=== PATIENT | male | born 1940 | race Caucasian/White ===

== ENCOUNTER 2021-11-18 12:16 | Inpatient (IN) | payer OTHER, BC ==
[~2021-11-18] VITALS: Ht 170.2 cm; Wt 86.2 kg
[2021-11-18 12:16] VITALS: BP 137/71
--- NOTE | 2021-11-18 12:40 | NUR ---
RAD AT BEDSIDE
--- NOTE | 2021-11-18 12:50 | NUR ---
81YO MALE PT BIBA FROM HOME DUE TO ALOC. PER [facility], FAMILY REPORTS PT LAST WELL BEING WAS LAST NIGHT . FAMILY REPORTS EPISODES OF VOMITING WITH SYNCOPAL . UPON ARIIVAL PT AAOX1 TO NAME AND WITH FEVER OF 102.9 VIA ORAL . PT PRESENTS WITH BILATERAL NEPHROSTOMY TUBES, SUBRAPUBIC CATHETER, AND COLOSTOMY BAG. PT WARM TO TOUCH , NOT IN VISIBLE DISTRESS. RESPIRATIONS EVEN AND UNLABORED. PT MAINLY FARSI SPEAKING BUT UNDERSTANDS SIMPLE SLOVENIAN AND DIRECTIONS. PMH:DM, HTN, HYPERLIPIDEMIA NKA
--- NOTE | 2021-11-18 12:56 | NUR ---
PT SWABBED FOR COVID(NICKY). HANDED TO HEALTH CARE ASSISTANT
--- NOTE | 2021-11-18 12:59 | NUR ---
LAB AT BEDSIDE
[2021-11-18] MEDS ORDERED: NACL 0.9% 1,000 ML IV ONE (13:00)
[2021-11-18] MEDS ORDERED: ACETAMINOPHEN EXTRA STRENGTH 500 MG TAB PO ONE (13:05)
[2021-11-18] MEDS ORDERED: CEFEPIME 1,000 MG in DEXTROSE 5% 50 ML IV ONE (13:05)
[2021-11-18] MEDS ORDERED: CEFEPIME 1,000 MG VIAL ONE (13:26)
--- NOTE | 2021-11-18 13:32 | NUR ---
Dania hatch in [facility] - 11/18/21 at 1606 by PHSEP PT STATES "COLD" , PROVIDED WITH ARLEEN Alberts
[2021-11-18 13:36] LABS: BASOPHILS % (AUTO) 0.2 % (0.0-2.0); EOSINOPHILS % (AUTO) 0.2 % (0.0-4.0); HEMATOCRIT 37.1 % (36-52); HEMOGLOBIN 11.9 g/dL (12.0-18.0); LYMPHOCYTES # (AUTO) 1.2 K/uL (2.0-11.5); LYMPHOCYTES % (AUTO) 9.4 % (20.5-51.1); MEAN CORPUSCULAR HEMOGLOBIN 27 pg (27-31); MEAN CORPUSCULAR HGB CONC 32 g/dL (33-37); MEAN CORPUSCULAR VOLUME 85.6 fL (80-94); MONOCYTES # (AUTO) 0.7 K/uL (0.8-1.0); MONOCYTES % (AUTO) 5.9 % (1.7-9.3); NEUTROPHILS # (AUTO) 10.7 K/uL (1.8-7.7); NEUTROPHILS % (AUTO) 84.3 % (42.2-75.2); PLATELET COUNT (AUTO) 329 K/uL (140-450); RED BLOOD CELL COUNT(AUTO) 4.33 MIL/uL (4.20-6.10); RED CELL DISTRIBUTION WIDTH 14.2 % (11.6-13.7); WHITE BLOOD COUNT (AUTO) 12.7 K/uL (4.8-10.8)
[2021-11-18 14:04] LABS: ALBUMIN 2.2 g/dL (3.4-5.0); ANION GAP 14.3 (8-16); ASPARTATE AMINOTRANSFERASE 11 U/L (15-37); CARBON DIOXIDE 16.9 mmol/L (21-32); CHLORIDE 108 mmol/L (98-107); GLUCOSE 128 mg/dL (74-106); POTASSIUM 5.2 mmol/L (3.5-5.1); SALICYLATE 1.1 mg/dL (2.8-20.0); SODIUM SERUM 134 mmol/L (136-145); TOTAL BILIRUBIN 0.3 mg/dL (0.0-1.0); UREA NITROGEN, BLOOD 37 mg/dL (7-18)
[2021-11-18 14:05] LABS: ACETAMINOPHEN < 0.5 ug/ml (10-30)
--- NOTE | 2021-11-18 14:20 | NUR ---
PT TAKEN TO CT Addendum: 11/18/21 at 1424 by PHSEP PT TAKEN TO CT VIA MILO
[2021-11-18] MEDS ORDERED: ONDANSETRON 4 MG/2 ML VIAL ONE (15:27)
[2021-11-18] MEDS ORDERED: IBUPROFEN 800 MG TAB ONE (15:28)
[2021-11-18] MEDS ORDERED: IBUPROFEN 800 MG TAB PO ONE (15:30)
[2021-11-18 15:37] LABS: APPEARANCE,URINE CLEAR (CLEAR); BILIRUBIN,URINE NEGATIVE (NEGATIVE); BLOOD, URINE 1+ (NEGATIVE); COLOR,URINE YELLOW (YELLOW); LEUKOCYTE ESTERASE ,URINE 2+ (NEGATIVE); NITRITE, URINE POSITIVE (NEGATIVE); PH,URINE 5.5 (5.0-9.0); UGLUCOSE TRACE (NEGATIVE)
[2021-11-18] MEDS: ONDANSETRON 4 MG/2 ML VIAL IVP ONE ×2 (15:41→16:14)
[2021-11-18 15:58] LABS: BARBITURATE, URINE NEGATIVE ng/ml (NEG <=200); BENZODIAZEPINE, URINE POSITIVE ng/mL (NEG <=200); CANNABINOID, URINE NEGATIVE ng/mL (NEG <=50); COCAINE, URINE NEGATIVE ng/mL (NEG <=300); OPIATE, URINE NEGATIVE ng/mL (NEG <=2000); PHENCYCLIDINE SCREEN,URINE NEGATIVE ng/mL (NEG <=25)
[2021-11-18] MEDS ORDERED: DOXA2TAB2 (16:42)
[2021-11-18] MEDS ORDERED: [UNRECOGNIZED DRUG - CODE] (16:42)
[2021-11-18] MEDS ORDERED: GABA300S (16:42)
[2021-11-18] MEDS ORDERED: METO-744 PO (16:42)
[2021-11-18] MEDS ORDERED: LOSA100T51 PO (16:42)
[2021-11-18] MEDS ORDERED: AMIT10TA25 (16:42)
[2021-11-18] MEDS ORDERED: CALC-1015 PO (16:42)
[2021-11-18] MEDS ORDERED: METF-924 PO (16:42)
[2021-11-18] MEDS ORDERED: ASPI-1856 PO (16:42)
[2021-11-18] MEDS ORDERED: SIMV10TA92 (16:42)
[2021-11-18] MEDS ORDERED: ATA25 PO (16:44)
[2021-11-18] MEDS ORDERED: CLOP75TA55 PO (16:47)
[2021-11-18] MEDS ORDERED: LANTUS SUBQ (16:56)
[2021-11-18] MEDS ORDERED: MULT-2253 PO (16:58)
[2021-11-18] MEDS ORDERED: CIPR500T4 PO (16:59)
[2021-11-18] MEDS ORDERED: VIT1TAB10 PO (16:59)
[2021-11-18 17:02] LABS: ANION GAP 16.1 (8-16); CHLORIDE 106 mmol/L (98-107); CREATININE 3.1 mg/dL (0.6-1.3); GLUCOSE 113 mg/dL (74-106); POTASSIUM 5.1 mmol/L (3.5-5.1); SODIUM SERUM 133 mmol/L (136-145); UREA NITROGEN, BLOOD 38 mg/dL (7-18)
[2021-11-18] MEDS ORDERED: VITA-16 PO (17:03)
[2021-11-18] MEDS ORDERED: KEN.1C TP (17:03)
[2021-11-18] MEDS ORDERED: VOL25 PO (17:04)
--- NOTE | 2021-11-18 17:10 | NUR ---
RECEIVED PATIENT REPORT FROM ER NURSE. PT ADMITTED FOR UTI, ALOC,AND SEPSIS. PT IS AOX4, ABLE TO MAKE NEEDS KNOWN. RESPIRATIONS EVEN AND UNLABORED ON ROOM AIR. NO DISTRESS NOTED. SKIN IS WARM, DRY, AND NON-INTACT. HAS SMALL DIME SIZE WOUND ON RIGHT LOWER BACK/HIP AREA. NO DRAINAGE NOTED. IV SITE ON LAC 18 INFUSING FLUIDS ORDERED. NOTED BILATERAL NEPHROSTOMY BAG, UROSTOMY, AND RLQ COLOSTOMY. NO DRAINAGE NOTED FOR EACH BAG. PLAN OF CARE DISCUSSED. SAFETY PRECAUTIONS IN PLACE. CALL LIGHT WITHIN REACH. WILL CONTINUE TO MONITOR.
--- NOTE | 2021-11-18 17:15 | NUR ---
Patient will be admitted to care of MD MARQUEZ . Admited to TELE . Will go to [facility] . Belongings list completed. Report to WIL PICHARDO.
[2021-11-18] MEDS: NACL 0.9% 1,000 ML IV SCH (17:30)
--- NOTE | 2021-11-18 18:31 | NUR ---
The patient's care was reviewed and supervised by [facility], RN.
[2021-11-18 18:38] LABS: WBC,URINE 0-5 /HPF (0-5)
--- NOTE | 2021-11-18 19:40 | NUR ---
ENDORSED TO MEDICAL RESEARCH TECH NURSE FOR CONTINUITY OF CARE. PT IS STABLE.
--- NOTE | 2021-11-18 19:45 | NUR ---
GET THE REPORT FROM MORNING NURSE WIL, PATIENT IS LYING ON BED, PATIENT IS ALERT ORIENTED X4, CALL LIGHT IS WITHIN THE REACH,WILL CONTINUE TO MONITOR PATIENT.
[2021-11-18 20:00] VITALS: BP 130/72
--- NOTE | 2021-11-18 21:00 | NUR ---
PATIENT IS LYING ON BED, VITAL SIGN IS WITHIN THE NORMAL RANGE,NO ANY COMPLAIN OF PAIN OR SHORTENS OF BREATH AT THIS TIME, ALL SCHEDULE MEDICATION IS GIVEN PER DOCTOR ORDER, CALL LIGHT IS WITHIN THE REACH, WILL CONTINUE TO MONITOR PATIENT.
[2021-11-19] VITALS: BP 143/74
--- NOTE | 2021-11-19 00:29 | NUR ---
PATIENT IS LYING ON BED, VITAL SIGN IS WITHIN THE NORMAL RANGE , CALL LIGHT IS WITHIN THE REACH, WILL CONTINUE TO MONITOR PATIENT
[2021-11-19] MEDS: NACL 0.9% 1,000 ML IV SCH ×4 (01:15→21:00)
[2021-11-19 04:00] VITALS: BP 133/67
--- NOTE | 2021-11-19 04:33 | NUR ---
PATIENT IS LYING ON BED, VITAL SIGN IS WITHIN THE NORMAL RANGE, NO ANY COMPLAIN OF PAIN OR SHORTNESS OF BREATH AT THIS TIME, ALL SCHEDULE MEDICATION IS GIVEN PER DOCTOR ORDER, CALL LIGHT IS WITHIN THE REACH,WILL CONTINUE TO MONITOR PATIENT.
--- NOTE | 2021-11-19 06:12 | NUR ---
PATIENT IS LYING ON BED, NO ANY COMPLAIN OF PAIN OR SHORTNESS OF BREATH AT THIS TIME, CALL LIGHT IS WITHIN THE REACH, WILL CONTINUE TO MONITOR PATIENT.
--- NOTE | 2021-11-19 07:02 | NUR ---
PATIENT HAS BEEN SCREENED AND CATEGORIZED MODERATE NUTRITION RISK. PATIENT WILL BE SEEN WITHIN 3-5 DAYS OF ADMISSION. 11/21/21-11/23/21 SU CALLAWAY MS, RDN
[2021-11-19 07:12] LABS: BASOPHILS % (AUTO) 0.2 % (0.0-2.0); EOSINOPHILS # (AUTO) 0.1 K/uL (0-0.4); EOSINOPHILS % (AUTO) 0.9 % (0.0-4.0); HEMATOCRIT 36.1 % (36-52); HEMOGLOBIN 11.7 g/dL (12.0-18.0); LYMPHOCYTES # (AUTO) 1.6 K/uL (2.0-11.5); MEAN CORPUSCULAR HEMOGLOBIN 28 pg (27-31); MEAN CORPUSCULAR HGB CONC 32 g/dL (33-37); MEAN CORPUSCULAR VOLUME 85.5 fL (80-94); MONOCYTES # (AUTO) 1.2 K/uL (0.8-1.0); MONOCYTES % (AUTO) 9.2 % (1.7-9.3); NEUTROPHILS # (AUTO) 9.7 K/uL (1.8-7.7); NEUTROPHILS % (AUTO) 76.7 % (42.2-75.2); PLATELET COUNT (AUTO) 320 K/uL (140-450); RED BLOOD CELL COUNT(AUTO) 4.22 MIL/uL (4.20-6.10); RED CELL DISTRIBUTION WIDTH 14.4 % (11.6-13.7); WHITE BLOOD COUNT (AUTO) 12.6 K/uL (4.8-10.8)
--- NOTE | 2021-11-19 07:16 | NUR ---
GAVE THE REPORT TO MORNING NURSE GONZALEZ FOR CONTINUOS OF CARE, PATIENT IS STABLE. Addendum: 11/19/21 at 0717 by Sena Medina RN GAVE THE REPORT TO MORNING NURSE ALLAN FOR CONTINUOS OF CARE, PATIENT IS STABLE
--- NOTE | 2021-11-19 07:30 | NUR ---
Received bedside SBAR from Sena PICHARDO. Patient is resting in bed. No acute distress noted at this time. Respirations even and unlabored; RA. Call light within reach. Will continue to monitor.
[2021-11-19 08:00] VITALS: BP 135/73
--- NOTE | 2021-11-19 09:30 | NUR ---
UROLOGY CONSULT Dr. Torres came to consult patient. Reviewed history of patient with . Assessed bilateral nephrostomy bags & right urostomy. MD stated he will call son for further information. No orders received at this time. Will continue to monitor.
[2021-11-19 12:00] VITALS: BP 138/76
[2021-11-19] MEDS ORDERED: DEXTROSE 50% 50 ML SYR IVP PRN (15:05)
[2021-11-19 16:00] VITALS: BP 140/79
[2021-11-19] MEDS: BLOOD GLUCOSE MONITORING 1 DEV DEV FS SCH ×2 (16:30→20:55)
--- NOTE | 2021-11-19 19:30 | NUR ---
RECEIVED BEDSIDE REPORT FROM DAY SHIFT RN FOR CONTINUITY OF CARE. PT IS AWAKE ON RA. PT IS NOT IN ANY ACUTE DISTRESS. PT HAS LEFT AC 18 GAUGE NS AT 120 ML/HR. PT IS BEDBOUND. PLAN OF CARE DISCUSSED. CALL LIGHT WITHIN REACH. ALL SAFETY MEASURES TAKEN. WILL CONTINUE TO MONITOR THE PT.
[2021-11-19 20:00] VITALS: BP 129/78
[2021-11-19] MEDS: HYDROXYZINE HYDROCHLORIDE 25 MG TAB PO SCH (20:56)
--- NOTE | 2021-11-19 21:10 | NUR ---
ALL DUE MEDS GIVEN. NO ADVERSE REACTION NOTED. WILL CONTINUE TO MONITOR THE PT.
[2021-11-20] VITALS: BP 127/68
--- NOTE | 2021-11-20 01:49 | NUR ---
PT IV BECAME INFILTRATED. REMOVED IV WITH CATHETER INTACT. NEW IV PLACED ON RIGHT HAND 22 GAUGE.
[2021-11-20 04:00] VITALS: BP 123/72
--- NOTE | 2021-11-20 05:30 | NUR ---
PT WAS HELPED TO CHANGING BED LINENS AND SOCKS. PT DOES NOT WANT ANYTHING ELSE CHANGED. ALL NEEDS MET. WILL CONTINUE TO MONITOR THE PT.
--- NOTE | 2021-11-20 07:24 | NUR ---
ENDORSED PT TO DAY SHIFT RN FOR CONTINUITY OF CARE. PT IS STABLE.
[2021-11-20] MEDS: BLOOD GLUCOSE MONITORING 1 DEV DEV FS SCH ×3 (07:30→21:06)
[2021-11-20 08:00] VITALS: BP 138/80
--- NOTE | 2021-11-20 08:05 | NUR ---
GOT REPORT FROM THE NIGHT NURSE PT RESTING IN BED, IV FLUID IS INFUSING ORDERED.[id number]
[2021-11-20] MEDS: LOSARTAN 50 MG TAB PO SCH (08:59)
[2021-11-20] MEDS: CALCIUM CARB/VIT-D 500 MG/200 IU 1 TAB PO SCH (09:00)
[2021-11-20] MEDS: SIMVASTATIN 10 MG TAB PO SCH ×2 (09:00→21:00)
[2021-11-20] MEDS: DOXAZOSIN 2 MG TAB PO SCH (09:01)
[2021-11-20] MEDS: MULTIVITAMIN 1 TAB PO SCH (09:01)
[2021-11-20] MEDS: AMITRIPTYLINE 10 MG TAB PO SCH (09:01)
[2021-11-20] MEDS: METOPROLOL SUCCINATE 50 MG TABER PO SCH (09:04)
[2021-11-20] MEDS: VITAMIN B COMPLEX W/C 1 TAB PO SCH (09:10)
[2021-11-20] MEDS: NACL 0.9% 1,000 ML IV SCH ×2 (10:05→18:25)
[2021-11-20 11:47] LABS: BASOPHILS % (AUTO) 0.2 % (0.0-2.0); EOSINOPHILS % (AUTO) 0.4 % (0.0-4.0); HEMATOCRIT 42.5 % (36-52); HEMOGLOBIN 13.9 g/dL (12.0-18.0); LYMPHOCYTES # (AUTO) 1.4 K/uL (2.0-11.5); LYMPHOCYTES % (AUTO) 12.6 % (20.5-51.1); MEAN CORPUSCULAR HEMOGLOBIN 28 pg (27-31); MEAN CORPUSCULAR HGB CONC 33 g/dL (33-37); MEAN CORPUSCULAR VOLUME 85.4 fL (80-94); MONOCYTES # (AUTO) 0.8 K/uL (0.8-1.0); MONOCYTES % (AUTO) 7.7 % (1.7-9.3); NEUTROPHILS # (AUTO) 8.6 K/uL (1.8-7.7); NEUTROPHILS % (AUTO) 79.1 % (42.2-75.2); PLATELET COUNT (AUTO) 350 K/uL (140-450); RED BLOOD CELL COUNT(AUTO) 4.98 MIL/uL (4.20-6.10); RED CELL DISTRIBUTION WIDTH 14.3 % (11.6-13.7); WHITE BLOOD COUNT (AUTO) 10.9 K/uL (4.8-10.8)
[2021-11-20 12:00] VITALS: BP 125/73
[2021-11-20 12:03] LABS: CARBON DIOXIDE 16.1 mmol/L (21-32); CHLORIDE 103 mmol/L (98-107); CREATININE 2.3 mg/dL (0.6-1.3); GLUCOSE 169 mg/dL (74-106); POTASSIUM 5.1 mmol/L (3.5-5.1); SODIUM SERUM 130 mmol/L (136-145); UREA NITROGEN, BLOOD 43 mg/dL (7-18)
[2021-11-20] MEDS: INSULIN LISPRO SLIDING SCALE 100 UNITS/ML VIAL SUBQ PRN ×3 (12:21→21:12)
[2021-11-20] MEDS ORDERED: MORPHINE SULFATE 2 MG/ML SYR IVP PRN (17:00)
[2021-11-20 18:40] VITALS: BP 122/74
--- NOTE | 2021-11-20 19:34 | NUR ---
GET THE REPORT FROM MORNING NURSE DONALDO , PATIENT IS LYING ON BED, PATIENT IS ALERT ORIENTED X4, CALL LIGHT IS WITHIN THE REACH, WILL CONTINUE TO MONITOR PATIENT
[2021-11-20 20:00] VITALS: BP 124/96
--- NOTE | 2021-11-20 20:47 | NUR ---
PATIENT IS LYING ON BED, VITAL SIGN IS WITHIN THE NORMAL RANGE, NO ANY COMPLAIN OF PAIN OR SHORTNESS OF BREATH AT THIS TIME, CALL LIGHT IS WITHIN THE REACH, WILL CONTINUE TO MONITOR PATIENT
[2021-11-20] MEDS: HYDROXYZINE HYDROCHLORIDE 25 MG TAB PO SCH (21:00)
--- NOTE | 2021-11-20 21:12 | NUR ---
PATIENT IS LYING ON BED, VITAL SIGN IS WITHIN THE NORMAL RANGE, NO ANY COMPLAIN OF PAIN OR SHORTNESS OF BREATH AT THIS TIME, ALL SCHEDULE MEDICATION IS GIVEN PER DOCTOR ORDER, PATIENT BLOOD SUGAR IS 202, INSULIN 4 UNIT IS GIVEN PER SLIDING SCALE ODDER BY DOCTOR , CALL LIGHT IS WITHIN THE REACH, WILL CONTINUE TO MONITOR PATIENT
[2021-11-21] VITALS: BP 115/72
--- NOTE | 2021-11-21 00:46 | NUR ---
VITAL SIGN IS WITHIN THE NORMAL RANGE, NO ANY COMPLAIN OF PAIN , CALL LIGHT IS WITHIN THE REACH, WILL CONTINUE TO MONITOR PATIENT.
[2021-11-21] MEDS: NACL 0.9% 1,000 ML IV SCH ×3 (03:10→22:30)
[2021-11-21 04:00] VITALS: BP 102/57
--- NOTE | 2021-11-21 05:05 | NUR ---
PATIENT IS LYING ON BED, VITAL SIGN IS WITHIN THE NORMAL RANGE, NO ANY COMPLAIN OF PAIN OR SHORTNESS OF BREATH AT THIS TIME ,CALL LIGHT IS WITHIN THE REACH,WILL CONTINUE TO MONITOR PATIENT.
[2021-11-21] MEDS: BLOOD GLUCOSE MONITORING 1 DEV DEV FS SCH ×4 (06:47→20:40)
[2021-11-21] MEDS: INSULIN LISPRO SLIDING SCALE 100 UNITS/ML VIAL SUBQ PRN ×3 (06:48→20:41)
--- NOTE | 2021-11-21 07:10 | NUR ---
RECEIVED REPORT FROM EXECUTIVE COMMUNICATIONS MANAGER NURSE FOR CONTINUITY OF CARE. PT IN BED RESTING AT THIS TIME. RESPIRATIONS ARE EVEN AND UNLABORED ON ROOM AIR. NO SIGNS OF DISTRESS NOTED. PT IS ABLE TO FOLLOW COMMANDS, ABLE TO VERBALIZE NEEDS. PT HAS IV TO R HAND, 22G, WITH NS INFUSING AT 120. CALL LIGHT WITHIN REACH. ALL SAFETY MEASURES IN PLACE. WILL CONTINUE TO MONITOR.
[2021-11-21 07:27] LABS: BASOPHILS % (AUTO) 0.3 % (0.0-2.0); EOSINOPHILS % (AUTO) 0.3 % (0.0-4.0); HEMATOCRIT 36.8 % (36-52); HEMOGLOBIN 11.9 g/dL (12.0-18.0); LYMPHOCYTES # (AUTO) 1.3 K/uL (2.0-11.5); LYMPHOCYTES % (AUTO) 9.1 % (20.5-51.1); MEAN CORPUSCULAR HEMOGLOBIN 27 pg (27-31); MEAN CORPUSCULAR HGB CONC 32 g/dL (33-37); MEAN CORPUSCULAR VOLUME 84.9 fL (80-94); MONOCYTES % (AUTO) 7.5 % (1.7-9.3); NEUTROPHILS # (AUTO) 11.5 K/uL (1.8-7.7); NEUTROPHILS % (AUTO) 82.8 % (42.2-75.2); PLATELET COUNT (AUTO) 313 K/uL (140-450); RED BLOOD CELL COUNT(AUTO) 4.34 MIL/uL (4.20-6.10); RED CELL DISTRIBUTION WIDTH 14.4 % (11.6-13.7); WHITE BLOOD COUNT (AUTO) 13.9 K/uL (4.8-10.8)
[2021-11-21 07:45] LABS: ANION GAP 13.6 (8-16); CARBON DIOXIDE 13.4 mmol/L (21-32); CHLORIDE 106 mmol/L (98-107); CREATININE 2.2 mg/dL (0.6-1.3); GLUCOSE 167 mg/dL (74-106); SODIUM SERUM 129 mmol/L (136-145); UREA NITROGEN, BLOOD 39 mg/dL (7-18)
[2021-11-21 07:54] LABS: MAGNESIUM 1.6 mg/dL (1.8-2.4); PHOSPHORUS 3.1 mg/dL (2.5-4.9)
[2021-11-21 08:00] VITALS: BP 107/60
[2021-11-21] MEDS: CALCIUM CARB/VIT-D 500 MG/200 IU 1 TAB PO SCH (09:09)
[2021-11-21] MEDS: MULTIVITAMIN 1 TAB PO SCH (09:10)
[2021-11-21] MEDS: VITAMIN B COMPLEX W/C 1 TAB PO SCH (09:10)
[2021-11-21] MEDS: LOSARTAN 50 MG TAB PO SCH (09:11)
[2021-11-21] MEDS: CHOLECALCIFEROL 1,000 IU TAB PO SCH (09:11)
[2021-11-21] MEDS: AMITRIPTYLINE 10 MG TAB PO SCH (09:13)
[2021-11-21] MEDS: METOPROLOL SUCCINATE 50 MG TABER PO SCH (09:13)
[2021-11-21] MEDS: DOXAZOSIN 2 MG TAB PO SCH (09:14)
--- NOTE | 2021-11-21 09:18 | NUR ---
ADMINISTERED SCHEDULED MEDICATIONS. EDUCATED PT ON MEDS ADMINISTERED. PT VERBALIZED UNDERSTANDING. WILL CONTINUE TO MONITOR.
[2021-11-21 10:02] LABS: PROTHROMBIN TIME 10.2 secs (10.8-13.4)
--- NOTE | 2021-11-21 10:21 | NUR ---
RADIOLOGY ON UNIT TO NITROCELLULOSE OPERATOR PT FOR SCHEDULED PROCEDURE.
[2021-11-21] MEDS ORDERED: fentaNYL citrate 0.05 MG/ML VIAL ONE (10:29)
[2021-11-21] MEDS ORDERED: MIDAZOLAM 2 MG/2 ML VIAL ONE (10:30)
[2021-11-21] MEDS ORDERED: LIDOCAINE MPF 2% 100 MG/5 ML VIAL INJ ONE (10:33)
[2021-11-21 12:00] VITALS: BP 104/61
--- NOTE | 2021-11-21 12:00 | NUR ---
PT BACK ON UNIT.
--- NOTE | 2021-11-21 13:22 | NUR ---
PT IN BED EATING AT THIS TIME. RESPIRATIONS ARE EVEN AND UNLABORED. NO COMPLAINTS OF PAIN OR DISCOMFORT. PT APPEARS IN GOOD SPIRITS. WILL CONTINUE TO MONITOR.
--- NOTE | 2021-11-21 15:20 | NUR ---
DC PLANNING: THE PATIENT PRESENTED FORM HOME WITH ALOC AND A TEMPERATURE OF 102 R. H/O HTN, DM, ILEAL CONDUIT, DIVERTING COLOSTOMY AND COLON CANCER. WBC'S 12.7, K+ 5.2, CR, 3, UA POSITIVE. CXR SHOWS POSSIBLE CHF AND PNA, CT OF HEAD SHOWS SINUS DISEASE. ORDER FOR NEPHROLOGY CONSULT, NOTED TO HAVE DISLODGED BILATERAL NEPHROSTOMY TUBE WHICH WERE REPLACED ON 11/21 BY IR. ON ROCEPHIN AND IVF'S. MALIK SPOKE WITH THE PATIENTS SON SHERRELL BY PHONE AND CONFIRMED THE ADDRESS AND PHONE NUMBER. THE PATIENT LIVES WITH HIS AND ANOTHER SON IN A GROUND FLOOR APARTMENT. THE PATIENT IS ABLE TO AMBULATE SHORT DISTANCES USING A [employer] AND SEES HIS PMD NANCIE RAI AT LEAST MONTHLY. HIS FAMILY PROVIDES TRANSPORT FOR DOCTORS APPOINTMENTS AND THE PATIENT IS ON SERVICE WITH HOME HEALTH BUT SHERRELL WILL CALL BACK WITH THE AGENCY NAME. HE REQUIRES ASSISTANCE WITH ADL'S. THE DC PLAN AT THIS TIME IS FOR THE PATIENT TO RETURN HOME WHEN CLINICALLY STABLE, CM WILL FOLLOW. Addendum: 11/22/21 at 1036 by Diana Guerrero CM DC PLANNING: MALIK SPOKE WITH THE PATIENTS SON SHERRELL BY PHONE TO DISCUSS SNF PLACEMENT. SHERRELL IS IN AGREEMENT THE PATIENTS HAS BEEN HIS CAREGIVER AND SHE IS HAVING MOBILITY ISSUES. THE PATIENT WAS AT [facility] A FEW MONTHS AGO, FAMILY WOULD LIKE HIM REFERRED THERE AGAIN. SHERRELL WILL SPEAK WITH HIS FATHER TO LET HIM KNOW WHAT THE DC PLAN IS, CM WILL FOLLOW. Addendum: 11/22/21 at 1551 by Diana Guerrero CM DC PLANNING: THE PATIENT IS ACCEPTED TO [facility], MALIK WILL F/U IN AM PENDING DC ORDER FOR ROOM AND ATTENDING MD. MALIK WILL FOLLOW. Addendum: 11/24/21 at 1027 by Diana Guerrero CM DC PLANNING: PATIENT ACCEPTED TO ROOM 11A AT [facility], DR JUAREZ TO FOLLOW. NUMBER TO CALL FOR TRANSPORT THROUGH [employer] [facility] IS [phone], IF THEY ARE UNABLE THE FACILITY CAN PROVIDE TRANSPORT, CALL [facility] AT [phone] AND SHE'LL ARRANGE IT. MALIK SPOKE WITH THE PATIENTS SON SHERRELL TO UPDATE HIM ON FACILITY ACCEPTANCE. MALIK WILL FOLLOW.
[2021-11-21 16:00] VITALS: BP 103/61
--- NOTE | 2021-11-21 16:17 | NUR ---
BLOOD GLUCOSE 174. COVERED WITH 2 UNITS INSULIN PER SLIDING SCALE.
--- NOTE | 2021-11-21 18:19 | NUR ---
PT IS REFUSING TO EAT. ATTEMPTED TO ASSIST WITH FEEDING. PT CONTINUES TO REFUSE. PT ONLY PICKING AT SALAD AND SOME SOUP. ASKED PT REGARDING ANY FOOD DISLIKES. PT SHAKING HEAD. WILL OFFER ALTERNATIVE.
--- NOTE | 2021-11-21 19:23 | NUR ---
ENDORSED PT TO PRINCIPAL CLERK TYPIST NURSE FOR CONTINUITY OF CARE. PT IS STABLE.
--- NOTE | 2021-11-21 19:24 | NUR ---
RECEIVED REPORT FROM DAY SHIFT NURSE FOR CONTINUITY OF CARE. PATIENT IS A&O X3, GERALD SPEAKING. PATIENT HAS IV SITE RIGHT FOREARM 22G, IVF RUNNING NORMAL SALINE AT 120ML/HR. PATIENT IS AWAKE, AND TALKATIVE. PATIENT IS LYING SEMI FOWLERS. DEMEANOR APPEARS TO BE POSITIVE, LANGUAGE BARRIER WITH PATIENT. NO SOB, BREATHING APPEARS TO BE NORMAL WITH SYMMETRICAL RISE AND FALL OF CHEST, ON ROOM AIR. PATIENT INDICATES NO PAIN WHEN ASKED. CALL LIGHT IN REACH, BED IN LOWEST POSITION WITH WHEELS LOCKED. WILL CONTINUE TO MONITOR.
[2021-11-21 20:00] VITALS: BP 101/56
[2021-11-21] MEDS: HYDROXYZINE HYDROCHLORIDE 25 MG TAB PO SCH (20:44)
[2021-11-21] MEDS: SIMVASTATIN 10 MG TAB PO SCH (20:45)
--- NOTE | 2021-11-21 20:47 | NUR ---
GAVE 2100 MEDS ORDERED. MEDS GIVEN SUCCESSFULLY. BLOOD SUGAR WAS 170, GAVE 2 UNITS COVERAGE. PATIENT WAS A&OX4, AND TALKATIVE. BREATH SOUNDS ARE EQUAL AND NORMAL. IVF RUNNING NS AT 120. WILL CONTINUE TO MONITOR PATIENT.
[2021-11-21 22:23] LABS: APPEARANCE,SPUN,BODY FLUID HAZY (CLEAR); APPEARANCE,UNSPUN,BODY FLUID CLOUDY (CLEAR); COLOR,BODY FLUID LT YELLOW (LT YELLOW); TOTAL VOLUME,BODY FLUID 10 mL
[2021-11-21 22:24] LABS: POLYNUCLEAR, BODY FLUID 100 %; RBC, BODY FLUID 0 /cu. mm.; WBC, BODY FLUID TNTC /cu. mm.
[2021-11-22] VITALS: BP 91/53
--- NOTE | 2021-11-22 | NUR ---
LOOKED IN ON PATIENT. PATIENT WAS SLEEPING. IVF RUNNING NORMAL SALINE AT 120ML/HR. BREATHING IS NORMAL WITH SYMMETRICAL RISE AND FALL OF CHEST AND IS UNLABORED. PATIENT IS LYING ON SIDE. WILL CONTINUE TO MONITOR.
--- NOTE | 2021-11-22 03:05 | NUR ---
LOOKED IN ON PATIENT. PATIENT WAS LYING ON SIDE SLEEPING. IVF RUNNING NORMAL SALINE AT 120 ML/HR. BREATHING IS UNLABORED AND NORMAL WITH SYMMETRICAL RISE AND FALL OF CHEST. WILL CONTINUE TO MONITOR.
[2021-11-22 03:32] LABS: GLUCOSE,BODY FLUID 34 mg/dL
[2021-11-22] MEDS: NACL 0.9% 1,000 ML IV SCH ×4 (03:45→22:05)
[2021-11-22 04:00] VITALS: BP 104/59
--- NOTE | 2021-11-22 04:30 | NUR ---
LOOKED IN ON PATIENT. PATIENT WAS SLEEPING ON SIDE. IVF RUNNING NS AT 120. BREATHING WAS NORMAL WITH SYMMETRICAL RISE AND FALL OF CHEST. WILL CONTINUE TO MONITOR PATIENT.
[2021-11-22] MEDS: BLOOD GLUCOSE MONITORING 1 DEV DEV FS SCH ×4 (06:41→21:11)
--- NOTE | 2021-11-22 06:42 | NUR ---
PERFORMED BLOOD GLUCOSE ON PATIENT. BS WAS 138, NO COVERAGE WAS NEEDED. IVF WAS RUNNING NS @ 120ML/HR. PATIENT WAS AWAKENED FOR BLOOD SUGAR. LEFT NEPHROSTOMY BAG WAS EMPTIED 230ML. BREATHING WAS UNLABORED AND NORMAL WITH SYMMETRICAL RISE AND FALL OF CHEST. PATIENT WAS LYING SUPINE, CALL LIGHT WAS IN REACH. WILL CONTINUE TO MONITOR.
--- NOTE | 2021-11-22 07:30 | NUR ---
ENDORSED TO MORNING SHIFT FOR CONTINUITY OF CARE. PATIENT IS STABLE.
--- NOTE | 2021-11-22 07:35 | NUR ---
RECEIVED PT FROM NIGHT RN, PT IS ALERT AND ORIENTED, SPEAKS GERALD, ON ROOM AIR, SEATED ON THE BED WITH SIDE RAILS UP AND CALL LIGHT WITHIN REACH, COLOSTOMY, BILATERAL NEPHROSTOMY AND UROSTOMY WERE ALL IN PLACE, IV LINE NOTED ON THE RFA G. 22 WITH NS INFUSING AT 120ML/HR, NO SIGN OF DISTRESS NOTED AND WILL CONTINUE TO MONITOR PT.
[2021-11-22 08:00] VITALS: BP 98/52
[2021-11-22] MEDS: METOPROLOL SUCCINATE 50 MG TABER PO SCH (09:00)
[2021-11-22] MEDS: LOSARTAN 50 MG TAB PO SCH (09:00)
[2021-11-22] MEDS: DOXAZOSIN 2 MG TAB PO SCH (09:00)
[2021-11-22] MEDS: AMITRIPTYLINE 10 MG TAB PO SCH (10:03)
[2021-11-22] MEDS: MULTIVITAMIN 1 TAB PO SCH (10:07)
[2021-11-22] MEDS: CHOLECALCIFEROL 1,000 IU TAB PO SCH (10:15)
[2021-11-22] MEDS: VITAMIN B COMPLEX W/C 1 TAB PO SCH (10:16)
--- NOTE | 2021-11-22 10:16 | NUR ---
PT WAS GIVEN THE SCHEDULED AM MEDICATIONS NOW, BP MEDICATIONS WERE HELD DUE TO PT'S BP IS 98/52. WILL MONITOR PT.
[2021-11-22] MEDS: CALCIUM CARB/VIT-D 500 MG/200 IU 1 TAB PO SCH (10:18)
--- NOTE | 2021-11-22 10:59 | NUR ---
PHYSICAL THERAPY CO-SIGN The Physical Therapy Progress Notes documented by Strategic Marketing Leader have been reviewed. Reviewed/Co-Signed by: Taylor Baldwin Documentation Done by: GOLD CHAMORRO PTA Addendum: 11/22/21 at 1100 by Taylor Baldwin PT Amended: Links added.
[2021-11-22 12:00] VITALS: BP 98/52
--- NOTE | 2021-11-22 12:30 | NUR ---
PT'S IV LINE WAS PULLED BY PT NOW, A NEW IV LINE ON THE RIGHT THUMB G. 22 WAS INSERTED TO PT.
--- NOTE | 2021-11-22 14:55 | NUR ---
PT IS SLEEPING NOW RIGHT NEPHROTOMY WAS DRAINED AND 300ML WAS TAKEN OUT AND THE LEFT NEPHROTOMY HAS 750ML OUTPUT.
[2021-11-22 16:00] VITALS: BP 95/55
[2021-11-22] MEDS: INSULIN LISPRO SLIDING SCALE 100 UNITS/ML VIAL SUBQ PRN (18:23)
--- NOTE | 2021-11-22 19:33 | NUR ---
RECEIVED REPORT FROM DAY SHIFT NURSE FOR CONTINUITY OF CARE. PATIENT IS A&O X3 GERALD SPEAKING. PATIENT IS AWAKE AND LYING DOWN SEMI FOWLERS. HE HAS TWO NEPHROSTOMY BAGS AND ONE COLOSTOMY BAG. NEW IV PLACED BY DAY SHIFT AFTER PATIENT PULLED OUT. IV SITE IS RIGHT WRIST 22G. IVF IS NS @ 120. PATIENT IS ON ROOM AIR. BED IS IN LOWEST POSITION WITH WHEELS LOCKED. PATIENT IS BED BOUND. WILL CONTINUE TO MONITOR.
[2021-11-22 20:00] VITALS: BP 97/65
[2021-11-22] MEDS: HYDROXYZINE HYDROCHLORIDE 25 MG TAB PO SCH (21:00)
[2021-11-22] MEDS: SIMVASTATIN 10 MG TAB PO SCH (21:00)
--- NOTE | 2021-11-22 21:13 | NUR ---
ADMINISTERED 2100 MEDICATIONS. MEDICATIONS ADMINISTERED SUCCESSFULLY AND TOLERATED WELL BY PATIENT. IVF RUNNING NS @ 120ML/HR. PATIENT WAS LYING SUPINE AND AWAKE. VERY TALKATIVE, ASKING FOR NEW WATER. NEW WATER WAS GIVEN TO PATIENT. MAIL LIST LIBRARIAN WAS READJUSTED BY GOPAL. WILL CONTINUE TO MONITOR PATIENT.
--- NOTE | 2021-11-22 22:08 | NUR ---
NEW BAG OF NS 0.9% WAS HUNG RUNNING AT 120ML/HR. PATIENT WAS SLEEPING SUPINE. BREATHING WAS NORMAL WITH SYMMETRICAL RISE AND FALL OF CHEST. ALL SAFETY MEASURES IN PLACE. WILL CONTINUE TO MONITOR.
[2021-11-23] VITALS: BP 96/57
--- NOTE | 2021-11-23 | NUR ---
PERFORMED 0000 VITALS ON PATIENT. BP 101/62, HR 64, O2 98, RR 18, TEMP 97.3. PATIENT WAS LYING SUPINE AND SLEEPING UPON ENTERING THE ROOM. PATIENT WAS COOPERATIVE WHEN PERFORMING VITALS. PATIENT'S BREATHING WAS NORMAL WITH SYMMETRICAL RISE AND FALL OF CHEST. NO FLUIDS RUNNING. BED IS IN LOWEST POSITION WITH WHEELS LOCKED AND CALL LIGHT IN PLACE. UPON LEAVING ROOM PATIENT WAS GOING BACK TO SLEEP. WILL CONTINUE TO MONITOR.
--- NOTE | 2021-11-23 02:36 | NUR ---
LOOKED IN ON PATIENT. PATIENT WAS SLEEPING LYING IN SEMI FOWLERS POSITION. IVF RUNNING NS AT 120. PATIENT'S BREATHING IS NORMAL WITH SYMMETRICAL RISE AND FALL OF CHEST. WILL CONTINUE TO MONITOR.
[2021-11-23 04:00] VITALS: BP 100/56
--- NOTE | 2021-11-23 04:18 | NUR ---
VITALS WERE OBTAINED FROM PATIENT. BP 100/56, HR 68, O2 98, RR 16, TEMP 98.0. LOOKED IN ON PATIENT, PATIENT WAS SLEEPING, BUT AWAKENED BY VITALS CHECK. IV FLUIDS RUNNING NS @ 120. PATIENT WAS LYING SUPINE. PATIENT WAS ON ROOM AIR, BREATHING WAS NORMAL WITH SYMMETRICAL RISE AND FALL OF CHEST. BED WAS IN LOWEST POSITION WITH WHEELS LOCKED AND CALL LIGHT WAS IN PLACE. WILL CONTINUE TO MONITOR.
[2021-11-23] MEDS: BLOOD GLUCOSE MONITORING 1 DEV DEV FS SCH ×4 (06:35→21:52)
--- NOTE | 2021-11-23 06:50 | NUR ---
HUNG NEW BAG OF NS AT 120 ML/HR. WILL CONTINUE TO MONITOR PATIENT.
[2021-11-23] MEDS: NACL 0.9% 1,000 ML IV SCH ×2 (06:58→21:56)
--- NOTE | 2021-11-23 07:37 | NUR ---
ENDORSED TO DAY SHIFT FOR CONTINUITY OF CARE. PATIENT IS STABLE.
--- NOTE | 2021-11-23 07:38 | NUR ---
RECEIVED REPORT FROM TEMPLE MARKER NURSE FOR CONTINUITY OF CARE. PT IS AWAKE. A&O 3, SPEAKS GERALD AND A LITTLE BIT OF VINCENTIAN, ABLE TO COMMUNICATE NEEDS. RESPIRATIONS EVEN AND UNLABORED ON RA. PT ON COAL DUMPING EQUIPMENT OPERATOR. COLOSTOMY BAG AT LEFT SIDE OF ABD, UROSTOMY AT THE RIGHT SIDE OF ABD, AND BILATERAL NEPHROSTOMY TUBES, ALL INTACT. IV SITE AT RIGHT WRIST 22G INFUSING NS AT 120ML/HR. CALL LIGHT WITHIN REACH. SAFETY PRECAUTIONS IN PLACE. WILL CONTINUE TO MONITOR.
[2021-11-23 08:00] VITALS: BP 108/56
--- NOTE | 2021-11-23 08:00 | NUR ---
PT IN BED , DISCUSSED THE PLAN OF CARE, PT SEEM NOT TO UNDERSTAND ALL BUT EXPLAINED, ASSESSMENT IS DONE. WILL COVER TONY ROD FOR IV MED AND PUSH. [id number]
--- NOTE | 2021-11-23 08:20 | NUR ---
P.T. AT BEDSIDE. PER P.T. PT REQUESTING FOR A WALKER BUT PT IS IMPULSIVE, CAN'T WALK BY HIMSELF.
--- NOTE | 2021-11-23 10:00 | NUR ---
ADMINISTERED SCHEDULED MORNING MEDS. EXPLAINED THE MEDS TO PT. PT VERBALIZED UNDERSTANDING. IV ABX GIVEN BY KYLEE FULTON. PT TOLERATED WELL. EMPTY COLOSTOMY BAG. COLLECTED 125ML URINE. CALL LIGHT WITHIN REACH. SAFETY PRECAUTIONS IN PLACE. WILL CONTINUE TO MONITOR.
[2021-11-23] MEDS: LOSARTAN 50 MG TAB PO SCH (10:09)
[2021-11-23] MEDS: DOXAZOSIN 2 MG TAB PO SCH (10:09)
[2021-11-23] MEDS: CHOLECALCIFEROL 1,000 IU TAB PO SCH (10:10)
[2021-11-23] MEDS: CALCIUM CARB/VIT-D 500 MG/200 IU 1 TAB PO SCH (10:10)
[2021-11-23] MEDS: METOPROLOL SUCCINATE 50 MG TABER PO SCH (10:11)
[2021-11-23] MEDS: MULTIVITAMIN 1 TAB PO SCH (10:11)
[2021-11-23] MEDS: AMITRIPTYLINE 10 MG TAB PO SCH (10:11)
[2021-11-23] MEDS: VITAMIN B COMPLEX W/C 1 TAB PO SCH (10:12)
--- NOTE | 2021-11-23 10:15 | NUR ---
GAVE PT SPONGE BATH WITH INDUSTRIAL SPRAYPAINTER. DRAINED 250ML OF URINE FROM RIGHT NEPHROSTOMY BAG. NO DISTRESS NOTED. PT ABLE TO COMMUNICATE NEEDS. LEFT PT COMFORTABLY LYING IN BED WITH CALL LIGHT IN PLACE. SAFETY MEASURES IN PLACE.
--- NOTE | 2021-11-23 10:18 | NUR ---
PHYSICAL THERAPY CO-SIGN The Physical Therapy Progress Notes documented by Astrobiologist have been reviewed. Reviewed/Co-Signed by: Taylor Baldwin Documentation Done by: GOLD CHAMORRO PTA Addendum: 11/23/21 at 1018 by Taylor Baldwin PT Amended: Links added.
[2021-11-23 12:00] VITALS: BP 111/60
--- NOTE | 2021-11-23 12:21 | NUR ---
BLOOD GLUCOSE CHECK DONE.BS 150. NO INSULIN COVERAGE NEEDED.
--- NOTE | 2021-11-23 13:51 | NUR ---
11/23/21 RD INITIAL ASSESSMENT COMPLETED PLEASE REFER TO NUTRITION ASSESSMENT UNDER CARE ACTIVITY FOR ESTIMATED NUTRITIONAL NEEDS. 1. CONTINUE CCHO 60GM DIET TOLERATED -RECOMMEND MECHANICAL SOFT TO IMPROVE PO INTAKE 2. RECOMMEND GLUCERNA BID PER RD PROTOCOL 3. MONITOR PO INTAKE 4. RD TO FOLLOW-UP 3-5 DAYS, MODERATE RISK ROYER FORDE RD
--- NOTE | 2021-11-23 15:31 | NUR ---
EMPTIED 600ML URINE ON LEFT NEPHRO BAG, 250ML ON RIGHT NEPHRO BAG AND 50ML ON UROSTOMY BAG. SON SHERRELL AT BEDSIDE.
[2021-11-23 16:00] VITALS: BP 120/60
--- NOTE | 2021-11-23 17:35 | NUR ---
BLOOD GLUCOSE CHECK DONE. BS 225. SLIDING SCALE INSULIN GIVEN. EMPTIED TOTAL OF 350 URINE ON BILATERAL NEPHRO BAGS AND 50 ML OF STOOL FROM COLOSTOMY BAG.
[2021-11-23] MEDS: INSULIN LISPRO SLIDING SCALE 100 UNITS/ML VIAL SUBQ PRN ×2 (17:36→21:53)
--- NOTE | 2021-11-23 19:35 | NUR ---
GAVE REPORT TO SWISS TYPE SCREW MACHINE OPERATOR NURSE FOR CONTINUITY OF CARE. ALL NEEDS MET THROUGHOUT SHIFT. PT IS STABLE.
--- NOTE | 2021-11-23 19:36 | NUR ---
RECD. RESTING IN BED, AWAKE, A/OX3. RESPIRATION EVEN AND UNLABORED. IV OF NS INFUSING AT 120 ML/HR, RIGHT WRIST G22. WITH COLOSTOMY TUBE DRAINING SMALL AMOUNT OF SOFT STOOLS, UROSTOMY ON THE RIGHT SIDE ABDOMEN. WITH BILATERAL NEPHROSTOMY TUBE IN PLACED. ON FALL PRECAUTION, SAFETY MEASURES IN PLACED. ON IV ANTIBIOTICS. DENIES PAIN 0/10.
[2021-11-23 20:00] VITALS: BP 110/59
--- NOTE | 2021-11-23 20:00 | NUR ---
ENCOURAGED TO EAT HIS DINNER BUT REFUSED. NEW PITCHER OF WATER GIVEN REQUESTED.
[2021-11-23] MEDS: MEROPENEM 500 MG in NACL 0.9% 50 ML IV SCH (21:00)
[2021-11-23] MEDS: SIMVASTATIN 10 MG TAB PO SCH (21:51)
--- NOTE | 2021-11-23 21:51 | NUR ---
BS CHECKED, 209. INSULIN COVERAGE ADMINISTERED. SNACK GIVEN AND NIGHT MEDICATIONS ADMINISTERED.
[2021-11-23] MEDS: HYDROXYZINE HYDROCHLORIDE 25 MG TAB PO SCH (21:52)
[2021-11-23] MEDS ORDERED: MEROPENEM 500 MG VIAL IV ONE (22:21)
--- NOTE | 2021-11-24 | NUR ---
SLEEPING COMFORTABLY IN BED. ERSPIRATION EEN AND UNLABORED.
--- NOTE | 2021-11-24 02:00 | NUR ---
AWAKE, REQUESTED FOR COLD WATER. NO COMPLAINT OF PAIN 0/10.
[2021-11-24 04:00] VITALS: BP 102/59
--- NOTE | 2021-11-24 04:00 | NUR ---
ON HIS BACK SLEEPING SUPINE. VS STABLE. TOLERATED ANTIBIOTICS INFUSED BY KYLEE WHITE.
[2021-11-24] MEDS: MEROPENEM 500 MG in NACL 0.9% 50 ML IV SCH ×3 (05:00→21:57)
[2021-11-24] MEDS: NACL 0.9% 1,000 ML IV SCH ×3 (05:45→22:02)
[2021-11-24] MEDS ORDERED: MEROPENEM 500 MG VIAL IV ONE (06:18)
--- NOTE | 2021-11-24 06:45 | NUR ---
BS CHECKED - 139. NO INSULIN COVERAGE. PATIENT REQUESTING FOR SPONGE BATH. WILL INFORM AM NURSE.
[2021-11-24] MEDS: BLOOD GLUCOSE MONITORING 1 DEV DEV FS SCH ×4 (07:09→21:07)
--- NOTE | 2021-11-24 07:25 | NUR ---
RECEIVED REPORT FROM NIGHTSHIFT NURSE FOR CONTINUITY OF CARE, PT CURRENTLY AWAKE, AND PRIMARILY GUJARATI-SPEAKING WITH VERY MINIMAL GERMAN . BREATHING EVEN, REGULAR AND UNLABORED ON ROOM AIR. SKIN INTACT, NO SIGNS OF DISTRESS OR DISCOMFORT NOTED. PT AMBULATORY, LEFT AND RIGHT NEPHROSTOMY HAD LIGHT YELLOW URINE, COLOSTOMY HAD SMALL AMOUNT OF BROWN SOLID STOOL, UROSTOMY HAD NO VISIBLE OUTPUT. PT IN STABLE CONDITION.
--- NOTE | 2021-11-24 07:25 | NUR ---
ENDORSED TO AM SHIFT NURSE FOR CONTINUITY OF CARE.
[2021-11-24 08:00] VITALS: BP 111/61
--- NOTE | 2021-11-24 08:47 | NUR ---
PHYSICAL THERAPY CO-SIGN The Physical Therapy Progress Notes documented by Improvement Analyst have been reviewed. Reviewed/Co-Signed by: Taylor Baldwin Documentation Done by: GOLD CHAMORRO PTA Addendum: 11/24/21 at 0847 by Taylor Baldwin PT Amended: Links added.
[2021-11-24] MEDS: AMITRIPTYLINE 10 MG TAB PO SCH (09:00)
[2021-11-24] MEDS: VITAMIN B COMPLEX W/C 1 TAB PO SCH (09:22)
[2021-11-24] MEDS: DOXAZOSIN 2 MG TAB PO SCH (09:22)
[2021-11-24] MEDS: LOSARTAN 50 MG TAB PO SCH (09:22)
[2021-11-24] MEDS: CALCIUM CARB/VIT-D 500 MG/200 IU 1 TAB PO SCH (09:23)
[2021-11-24] MEDS: MULTIVITAMIN 1 TAB PO SCH (09:23)
[2021-11-24] MEDS: METOPROLOL SUCCINATE 50 MG TABER PO SCH (09:23)
[2021-11-24] MEDS: CHOLECALCIFEROL 1,000 IU TAB PO SCH (09:24)
--- NOTE | 2021-11-24 09:30 | NUR ---
PT VISUALLY ASSESSED. PT CURRENTLY AWAKE AND RECEIVING BED BATH AND LINEN CHANGE FROM TAX APPRAISER. PT IN STABLE CONDITION, DENIES ANY PAIN.
--- NOTE | 2021-11-24 13:00 | NUR ---
PT'S RIGHT HAND WAS COOL AND SLIGHTLY SWOLLEN, IV WAS NOT PATENT. IV WAS REMOVED AND DRESSED. NEW 20G IV WAS INSERTED IN RIGHT AC.
--- NOTE | 2021-11-24 15:00 | NUR ---
PT VISUALLY ASSESSED. STABLE CONDITION, NO PAIN NOTED.
[2021-11-24 16:00] VITALS: BP 100/50
--- NOTE | 2021-11-24 17:00 | NUR ---
PT VISUALLY ASSESSED. STABLE CONDITION, NO PAIN NOTED.
[2021-11-24] MEDS: INSULIN LISPRO SLIDING SCALE 100 UNITS/ML VIAL SUBQ PRN ×2 (17:28→21:08)
--- NOTE | 2021-11-24 19:15 | NUR ---
ENDORSED PT TO NIGHTSHIFT NURSE FOR CONTINUITY OF CARE. PT IN STABLE CONDITION.
--- NOTE | 2021-11-24 19:16 | NUR ---
RECEIVED ENDORSEMENT FROM KYLEE MILLER FOR CONTINUITY OF CARE. PATIENT IS RESTING AND STABLE. A&OX4. VERBALLY RESPONSIVE AND ABLE TO COMMUNICATE NEEDS. DENIES PAIN. ON ROOM AIR WITH NO APPARENT S/SX OF ACUTE DISTRESS. RESPIRATIONS EVEN AND UNLABORED. IV SITE TO THE RAC 22G IS PATENT/INTACT AND WITH NS @ 120 ML/HR. ON BEDREST PER MD ORDER. PLAN OF CARE AND COMMUNICATION BOARD UPDATED. ALL SAFETY MEASURES IN PLACE. BED IN LOW/LOCKED POSITION. CALL LIGHT WITHIN REACH. WILL CONTINUE TO MONITOR.
[2021-11-24 20:00] VITALS: BP 101/61
--- NOTE | 2021-11-24 20:00 | NUR ---
Patient's Plan of Care was discussed and reviewed with CRISTAL JIMENEZ
--- NOTE | 2021-11-24 21:05 | NUR ---
ADMINISTERED SCHEDULED MEDICATIONS PER MD ORDER. TOLERATED WELL. DENIES PAIN. RESPIRATIONS EVEN AND UNLABORED WITH NO APPARENT S/SX OF ACUTE DISTRESS. COMMUNICATION BOARD UPDATED. ALL SAFETY MEASURES IN PLACE. CALL LIGHT WITHIN REACH. WILL CONTINUE TO MONITOR.
[2021-11-24] MEDS: HYDROXYZINE HYDROCHLORIDE 25 MG TAB PO SCH (21:08)
[2021-11-24] MEDS: SIMVASTATIN 10 MG TAB PO SCH (21:08)
--- NOTE | 2021-11-24 23:05 | NUR ---
PATIENT IS STABLE AND ASLEEP. CHEST IS RISING AND FALLING EVENLY. RESPIRATIONS EVEN AND UNLABORED WITH NO APPARENT S/SX OF ACUTE DISTRESS. COMMUNICATION BOARD UPDATED. ALL SAFETY MEASURES IN PLACE. CALL LIGHT WITHIN REACH. WILL CONTINUE TO MONITOR.
--- NOTE | 2021-11-25 01:05 | NUR ---
CHECKED PATIENT. STABLE AND ASLEEP IN SUPINE POSITION. CHEST IS RISING AND FALLING EVENLY. RESPIRATIONS EVEN AND UNLABORED WITH NO APPARENT S/SX OF ACUTE DISTRESS. COMMUNICATION BOARD UPDATED. ALL SAFETY MEASURES IN PLACE. CALL LIGHT WITHIN REACH. WILL CONTINUE TO MONITOR.
--- NOTE | 2021-11-25 03:05 | NUR ---
ROUNDED ON PATIENT. STABLE AND ASLEEP. CHEST IS RISING AND FALLING EVENLY. RESPIRATIONS EVEN AND UNLABORED WITH NO APPARENT S/SX OF ACUTE DISTRESS. COMMUNICATION BOARD UPDATED. ALL SAFETY MEASURES IN PLACE. CALL LIGHT WITHIN REACH. WILL CONTINUE TO MONITOR.
[2021-11-25 04:00] VITALS: BP 103/69
--- NOTE | 2021-11-25 05:05 | NUR ---
ANSWERED CALL LIGHT. PROVIDED FRESH WATER PER PATIENT REQUEST. DENIES PAIN. RESPIRATIONS EVEN AND UNLABORED WITH NO APPARENT S/SX OF ACUTE DISTRESS. ALL NEEDS MET. COMMUNICATION BOARD UPDATED. ALL SAFETY MEASURES IN PLACE. CALL LIGHT WITHIN REACH. WILL CONTINUE TO MONITOR.
[2021-11-25] MEDS: MEROPENEM 500 MG in NACL 0.9% 50 ML IV SCH ×2 (05:19→13:18)
[2021-11-25] MEDS: BLOOD GLUCOSE MONITORING 1 DEV DEV FS SCH ×2 (06:34→12:21)
[2021-11-25] MEDS: NACL 0.9% 1,000 ML IV SCH (06:45)
--- NOTE | 2021-11-25 07:05 | NUR ---
ENDORSED PATIENT TO KYLEE GALVAN FOR CONTINUITY OF CARE. PATIENT IS STABLE.
--- NOTE | 2021-11-25 07:05 | NUR ---
RECEIVED REPORT FROM NIGHTSHIFT NURSE CRISTAL FOR CONTINUITY OF CARE, PT CURRENTLY SLEEPING, EASILY AROUSED TO NAME. A/OX4, BREATHING EVEN, REGULAR AND UNLABORED ON ROOM AIR. SKIN INTACT, CURRENTLY DENIES ANY PAIN. BILATERAL NEPHROSTOMY BAGS PATENT WITH PALE YELLOW URINE. COLOSTOMY AND UROSTOMY BAGS INTACT. PT IN STABLE CONDITION.
[2021-11-25 08:00] VITALS: BP 111/59
[2021-11-25] MEDS: CHOLECALCIFEROL 1,000 IU TAB PO SCH (09:00)
[2021-11-25] MEDS: VITAMIN B COMPLEX W/C 1 TAB PO SCH (09:57)
[2021-11-25] MEDS: CALCIUM CARB/VIT-D 500 MG/200 IU 1 TAB PO SCH (09:58)
[2021-11-25] MEDS: LOSARTAN 50 MG TAB PO SCH (09:58)
[2021-11-25] MEDS: AMITRIPTYLINE 10 MG TAB PO SCH (09:58)
[2021-11-25] MEDS: DOXAZOSIN 2 MG TAB PO SCH (09:58)
[2021-11-25] MEDS: METOPROLOL SUCCINATE 50 MG TABER PO SCH (09:59)
[2021-11-25] MEDS: MULTIVITAMIN 1 TAB PO SCH (09:59)
[2021-11-25] MEDS ORDERED: IV Meropenam IV (10:29)
[2021-11-25] MEDS ORDERED: LANTUS SUBQ (10:29)
[2021-11-25] MEDS ORDERED: SIMV10TA92 PO (10:29)
[2021-11-25] MEDS ORDERED: LOSA100T51 PO (10:29)
--- NOTE | 2021-11-25 10:35 | NUR ---
Spoke to Jeremias from [facility], and patient can go to room 11 A. Transportation called and confermation number is [id number] and stated that transport gurney will call us for time of pick up operator. Patient is MDRO isolation and Jeremias from [facility] made aware. Assigned RN aware.
[2021-11-25] MEDS: INSULIN LISPRO SLIDING SCALE 100 UNITS/ML VIAL SUBQ PRN (12:20)
[2021-11-25 14:15] VITALS: BP 112/60
== END 2021-11-25 14:55 | DRG 871 ==
LOC: MED 12:16 → MTU 16:20
PROC: 0T25X0Z Change Drainage Device in Kidney, External Approach (ICD-10-PCS; principal; 2021-11-20)
DX: A41.51 Sepsis due to Escherichia coli [E. coli] (principal); E43 Unspecified severe protein-calorie malnutrition; N17.9 Acute kidney failure, unspecified; E87.1 Hypo-osmolality and hyponatremia; C18.9 Malignant neoplasm of colon, unspecified; M48.54XA Collapsed vertebra, not elsewhere classified, thoracic region, initial encounter for fracture; N13.6 Pyonephrosis; Z16.23 Resistance to quinolones and fluoroquinolones; J98.11 Atelectasis; N99.522 Malfunction of incontinent external stoma of urinary tract; N40.0 Benign prostatic hyperplasia without lower urinary tract symptoms; D64.9 Anemia, unspecified; K80.20 Calculus of gallbladder without cholecystitis without obstruction; Y83.8 Other surgical procedures as the cause of abnormal reaction of the patient, or of later complication, without mention of misadventure at the time of the procedure; Y82.8 Other medical devices associated with adverse incidents; K43.9 Ventral hernia without obstruction or gangrene; I51.7 Cardiomegaly; Z20.822 Contact with and (suspected) exposure to COVID-19; I12.9 Hypertensive chronic kidney disease with stage 1 through stage 4 chronic kidney disease, or unspecified chronic kidney disease; E11.22 Type 2 diabetes mellitus with diabetic chronic kidney disease; N18.9 Chronic kidney disease, unspecified; Z85.038 Personal history of other malignant neoplasm of large intestine; Z79.4 Long term (current) use of insulin; Z79.899 Other long term (current) drug therapy; Y92.89 Other specified places as the place of occurrence of the external cause; Z68.29 Body mass index [BMI] 29.0-29.9, adult
CPT/HCPCS: 36415; 50432; 70450; 71045; 74150; 80048; 80053; 80305; 81001; 82140; 82550; 82945; 82948; 83605; 83735; 84100; 84157; 84484; 85025; 85610; 85730; 87040; 87070; 87075; 87081; 87086; 87186; 87205; 89051; 93005; 96365; 96375; 97110; 97112; 97116; 97163-GP; 97530; 99291; G0480; G0482; J0692; J0696; J2001; J2185; J2250; J2270; J2405; J3010; J7060; Q0092